=== PATIENT | male | born 1995 | race Caucasian/White ===

== ENCOUNTER 2018-07-04 10:51 | Emergency (ER) | payer SELFPAY ==
[2018-07-04] MEDS ORDERED: DIPHENHYDRAMINE HCL 50 MG/ML VIAL IV ONE (11:19)
[2018-07-04] MEDS ORDERED: METOCLOPRAMIDE HCL INJ/PF 10 MG/2 ML SDV IV ONE (11:19)
--- NOTE | 2018-07-04 11:21 | ER Document Report ---
ED Medical Screen (RME) - General Chief Complaint: Headache Stated Complaint: HEADACHES,DIZZINESS,BLURRED VISION Time Seen by Provider: 07/04/18 11:19 Mode of Arrival: Ambulatory Information source: Patient Notes: 23-year-old male with asthma presents with complaint of headache that started 1 week prior to arrival after striking his head on the car door. States that he believes he lost consciousness for a "few seconds". Patient also complaining of blurry vision since that time. Patient has associated nausea, photophobia. He denies any fever, vomiting. Patient has taken ibuprofen Tylenol and Excedrin without relief I have greeted and performed a rapid initial assessment of this patient. A comprehensive ED assessment and evaluation of the patient, analysis of test results and completion of medical decision making process we will be contacted by additional ED providers. PHYSICAL EXAMINATION: Vital signs reviewed-mild hypertension GENERAL: Well-appearing, well-nourished and in no acute distress. LUNGS: No respiratory distress Musculoskeletal: Normal range of motion NEUROLOGICAL: Normal speech, normal gait. Cranial nerves II through XII intact PSYCH: Normal mood, normal affect. SKIN: Warm, Dry, normal turgor, no rashes or lesions noted. - HPI Onset: Other Onset/Duration: Gradual, Persistent Quality of pain: Throbbing Associated Symptoms: Headache, Nausea. denies: Earache, Fever Exacerbated by: Denies Relieved by: Denies Similar symptoms previously: No Recently seen / treated by doctor: No - Related Data Smoking: Cigarettes Frequency of alcohol use: None Drug Abuse: None Past Medical History - Social History Frequency of alcohol use: None Drug Abuse: None Renal/ Medical History: Denies: Hx Peritoneal Dialysis Physical Exam - Vital signs Vitals: Temp Pulse Resp BP Pulse Ox 97.7 F 78 20 149/80 H 98 07/04/18 10:56 07/04/18 10:56 07/04/18 10:56 07/04/18 10:56 07/04/18 10:56 Course - Vital Signs Vital signs: Temp Pulse Resp BP Pulse Ox 97.7 F 78 20 149/80 H 98 07/04/18 10:56 07/04/18 10:56 07/04/18 10:56 07/04/18 10:56 07/04/18 10:56
--- NOTE | 2018-07-04 13:57 | RADIOLOGY REPORT (SQ) ---
EXAM DESCRIPTION: CT HEAD WITHOUT COMPLETED DATE/TIME: 07/04/2018 1:39 pm REASON FOR STUDY: Headache, times 3 weeks, after hitting head, COMPARISON: None. TECHNIQUE: Axial images acquired through the brain without intravenous contrast. Images reviewed wi th bone, brain and subdural windows. Additional sagittal and coronal reconstructions were generated. Images stored on PACS. All CT scanners at this facility use dose modulation, iterative reconstruction, and/or weight based d osing when appropriate to reduce radiation dose to as low as reasonably achievable (ALARA). [facility]: Dose Right [facility]: CareDose [facility]: Dose Right [facility]: Teradose 4D [facility]: Divshot RADIATION DOSE: CT Rad equipment meets quality standard of care and radiation dose reduction techniq ues were employed. CTDIvol: 48.6 mGy. DLP: 951 mGy-cm. LIMITATIONS: None. FINDINGS: VENTRICLES: Normal size and contour. The cisterns are patent. CEREBRUM: No masses. No hemorrhage. No midline shift. No evidence for acute infarction. Normal gra y/white matter differentiation. No areas of low density in the white matter. CEREBELLUM: No masses. No hemorrhage. No alteration of density. No evidence for acute infarction. EXTRAAXIAL SPACES: No fluid collections. No masses. ORBITS AND GLOBE: No intra- or extraconal masses. Normal contour of globe without masses. CALVARIUM: No fracture. PARANASAL SINUSES: Mild mucosal thickening and mucous retention cyst or polyp in the right maxillary sinus. Slight to mild deviation of the nasal septum to the left of the midline. Pneumatization of the anterior calcaneal process bilaterally, normal anatomic variant. SOFT TISSUES: No mass or hematoma. OTHER: No other significant finding. IMPRESSION: 1. No acute intracranial abnormality. 2. Mild chronic right sinus disease and mucous retention cyst or polyp. 3. Additional findings as above. EVIDENCE OF ACUTE STROKE: NO. COMMENT: Quality ID # [id number]: Final reports with documentation of one or more dose reduction techniques (e.g., Automated exposure control, adjustment of the mA and/or kV according to patient size, use of iterative reconstruction technique) TECHNICAL DOCUMENTATION: JOB ID: [id number] [employer]- All Rights Reserved Reading location - IP/workstation name: [email or web address]
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
[2018-07-04 14:38] VITALS: BP 124/78
== END 2018-07-04 14:38 | disposition home or self-care (01) ==
LOC: ER 10:51
DX: S06.0X9A Concussion with loss of consciousness of unspecified duration, initial encounter (principal); J33.8 Other polyp of sinus; W22.09XA Striking against other stationary object, initial encounter; R42 Dizziness and giddiness; H53.8 Other visual disturbances; F17.200 Nicotine dependence, unspecified, uncomplicated
CPT/HCPCS: 99284; 96374; 96375; 82962; 70450; J1200; J2765

== ENCOUNTER 2018-07-24 16:35 | Emergency (ER) | payer BC ==
[2018-07-24 17:17] VITALS: BP 138/79
--- NOTE | 2018-07-24 17:49 | ER Document Report ---
ED General - General Chief Complaint: Headache Stated Complaint: HEADACHE, DIZZY, BURRED VISION, NAUSEA Time Seen by Provider: 07/24/18 17:23 Notes: 23-year-old male here with complaints of headaches "I have been getting them all my life" but over the past 1 month may have been more frequent. He has had headaches daily, intermittent, usually lasting several hours. Headaches are bifrontal nonradiating. Has been taking Excedrin for the symptoms. Headaches are worse with light and sound. They are improved, and in fact resolve with going to sleep in a cold dark room. He was seen here recently for the same thing and head CT showed sinus disease but no acute intracranial pathology. He has not seen a PCP or neurologist about these headaches. He states that he "just got insurance" but has not yet established care with a PCP. Some sinus congestion/pressure with nausea but no vomiting fevers chills neck pain numbness tingling weakness incontinence or retention. TRAVEL OUTSIDE OF THE [place] IN LAST 30 DAYS: No - Related Data Allergies/Adverse Reactions: No Known Allergies Allergy (Verified 07/24/18 17:19) Past Medical History - Social History Smoking Status: Former Smoker Chew tobacco use (# tins/day): No Frequency of alcohol use: None Drug Abuse: None Family History: Reviewed & Not Pertinent Patient has suicidal ideation: No Patient has homicidal ideation: No Pulmonary Medical History: Reports: Hx Asthma Endocrine Medical History: Denies: Hx Diabetes Mellitus Type 1, Hx Diabetes Mellitus Type 2 Renal/ Medical History: Denies: Hx Peritoneal Dialysis Past Surgical History: Reports: Hx Orthopedic Surgery - left wrist Review of Systems - Review of Systems Notes: See history of present illness for pertinent positive review of systems; otherwise all review of systems have been reviewed and are negative Physical Exam - Vital signs Vitals: Temp Pulse Resp BP Pulse Ox 97.9 F 79 15 138/79 H 98 07/24/18 17:16 07/24/18 17:16 07/24/18 17:16 07/24/18 17:16 07/24/18 17:16 - Notes Notes: PHYSICAL EXAMINATION: GENERAL: Well-appearing and in no acute distress. HEAD: Atraumatic, normocephalic. EYES: Pupils equal round and reactive to light, extraocular movements intact, sclera anicteric, conjunctiva are normal. ENT: nares patent, oropharynx clear without exudates. Moist mucous membranes. NECK: Normal range of motion, supple without lymphadenopathy LUNGS: CTAB and equal. No wheezes rales or rhonchi. HEART: Regular rate and rhythm without murmurs ABDOMEN: Soft, no tenderness. No facial grimacing/wincing upon palpation. No guarding, no rebound. EXTREMITIES: Normal range of motion, no pitting edema. No cyanosis. NEUROLOGICAL: Cranial nerves grossly intact. Normal sensory/motor exams. Cerebellar exam including finger to nose intact. PSYCH: Normal mood, normal affect. SKIN: Warm, Dry, normal turgor, no rashes or lesions noted Course - Re-evaluation Re-evalutation: 07/24/18 17:47 MEDICAL DECISION MAKING: Concern for sinusitis migraines less likely head bleed tumor given recent negative head CT Per chart review, does not appear he was prescribed antibiotics for sinus disease Will prescribe Augmentin and Fioricet with instructions to establish care with a PCP next day or few Patient understands and agrees to the plan of care - Vital Signs Vital signs: Temp Pulse Resp BP Pulse Ox 97.9 F 79 15 138/79 H 98 07/24/18 17:16 07/24/18 17:16 07/24/18 17:16 07/24/18 17:16 07/24/18 17:16 Discharge - Discharge Clinical Impression: Headache Qualifiers: Headache type: unspecified Headache chronicity pattern: chronic headache Intractability: not intractable Qualified Code(s): R51 - Headache Condition: Good Disposition: HOME, SELF-CARE Prescriptions: Amox Tr/Potassium Clavulanate [Augmentin 875-125 Tablet] 1 tab PO BID 10 Days tablet Butalb/Acetaminophen/Caffeine [Fioricet (50-325-40 mg) Tablet] 1 tab PO Q4H #20 tab
== END 2018-07-24 17:52 | disposition home or self-care (01) ==
LOC: ER 16:35
DX: R51 Headache (principal); R42 Dizziness and giddiness; H53.8 Other visual disturbances; R11.0 Nausea
CPT/HCPCS: 99283